=== PATIENT | male | born 1965 | race Two or more races ===

== ENCOUNTER 2018-06-19 23:48 | Emergency (ER) | payer OTHER ==
[~2018-06-19] VITALS: Ht 172.7 cm; Wt 90.7 kg
[~2018-06-19 23:48] MED LIST: CARB200T39 PO; LEVO25TA11 PO; RISP4TAB17 PO
[2018-06-19 23:53] VITALS: BP 141/93
== END 2018-06-20 00:41 | disposition home or self-care (01) ==
LOC: ER 23:52
DX: J40 Bronchitis, not specified as acute or chronic (principal); F25.9 Schizoaffective disorder, unspecified

== ENCOUNTER 2021-01-06 08:11 | Emergency (ER) | payer OTHER ==
[~2021-01-06] VITALS: Ht 172.7 cm; Wt 99.8 kg
[~2021-01-06 08:11] MED LIST changes: -CARB200T39 PO; +CARB200T9 PO; -RISP4TAB17 PO; +RISP4TAB70 PO
--- NOTE | 2021-01-06 08:25 | NUR ---
DR CARLOS AT BEDSIDE FOR EVAL
[2021-01-06] MEDS ORDERED: IV NS 0.9% 1,000 ML BAG IV ONE (08:30)
--- NOTE | 2021-01-06 08:30 | NUR ---
MINDI GOMES AT BEDSIDE FOR EKG
[2021-01-06 08:43] LABS: BASOPHILS % (AUTO) 0.6 % (0.0-2.0); EOSINOPHILS % (AUTO) 0.8 % (0.0-6.0); HEMATOCRIT 38 % (39-51); HEMOGLOBIN 13.6 g/dL (13.5-17.5); LYMPHOCYTES # (AUTO) 1.6 K/uL (0.8-4.8); LYMPHOCYTES % (AUTO) 25.4 % (20.0-44.0); MEAN CORPUSCULAR HGB CONC 36 g/dl (31.0-36.0); MEAN CORPUSCULAR VOLUME 88 fL (80-96); MONOCYTES # (AUTO) 0.5 K/uL (0.1-1.30); MONOCYTES % (AUTO) 8.1 % (2.0-12.0); NEUTROPHILS # (AUTO) 4.2 K/uL (1.8-8.9); NEUTROPHILS % (AUTO) 65.1 % (43.0-81.0); PLATELET COUNT (AUTO) 227 K/uL (150-450); RED BLOOD CELL COUNT(AUTO) 4.34 MIL/uL (4.5-6.0); WHITE BLOOD COUNT (AUTO) 6.5 K/uL (4.3-11.0)
--- NOTE | 2021-01-06 08:44 | NUR ---
PICKED UP BY JESSIKA GOMES VIA [facility] FOR CT SCAN
--- NOTE | 2021-01-06 08:56 | NUR ---
PATIENT BACK FRIM CT SCAN
[2021-01-06 09:23] LABS: CALCIUM, SERUM 7.9 mg/dL (8.5-10.1); CARBON DIOXIDE 23 mmol/L (21-32); CHLORIDE 91 mmol/L (98-107); CREATININE 0.8 mg/dL (0.6-1.3); GLUCOSE 136 mg/dL (74-106); SODIUM SERUM 124 mmol/L (136-145); UREA NITROGEN, BLOOD 9 mg/dL (7-18)
[2021-01-06 09:29] LABS: ALANINE AMINOTRANSFERASE 38 U/L (12-78); ALBUMIN 3.7 g/dL (3.4-5.0); ALKALINE PHOSPHATASE 70 U/L (46-116); ASPARTATE AMINOTRANSFERASE 28 U/L (15-37); BILIRUBIN,DIRECT 0.1 mg/dL (0.0-0.2); BILIRUBIN,TOTAL 0.3 mg/dL (0.2-1.0); TOTAL PROTEIN, SERUM 6.5 g/dL (6.4-8.2)
--- NOTE | 2021-01-06 09:38 | NUR ---
CALLED [facility] AND OPENED A CASE FOR PT. ALSO, ORDERED A SNAP SHOT.
--- NOTE | 2021-01-06 09:41 | NUR ---
PAGED [facility].
--- NOTE | 2021-01-06 10:17 | NUR ---
COVID 19 ANTIGEN SWAB DONE AND SENT TO LAB
--- NOTE | 2021-01-06 13:06 | NUR ---
[facility] CALLED AND WAS NOTIFIED THAT THE PT WAS ACCEPTED ROOM 5110A NUMBER FOR REPORT- [phone] DR[address] [facility] ETA FOR TRANSPORT [id number] PRN.
--- NOTE | 2021-01-06 13:41 | NUR ---
REPORT GIVEN TO TERI GUERRA OF [facility].
--- NOTE | 2021-01-06 14:04 | NUR ---
PICKED UP BY [id number] IN STABLE CONDITION. PATIENT WILL BE TRANSFERRED TO [facility]. VITALS TAKEN AND RECORDED.
[2021-01-06 14:05] VITALS: BP 154/111
== END 2021-01-06 14:17 | disposition short-term general hospital (02) ==
LOC: ER 08:13
DX: T42.1X1A Poisoning by iminostilbenes, accidental (unintentional), initial encounter (principal); R27.0 Ataxia, unspecified; Y92.038 Other place in apartment as the place of occurrence of the external cause; H55.00 Unspecified nystagmus; E87.1 Hypo-osmolality and hyponatremia; F25.9 Schizoaffective disorder, unspecified; R42 Dizziness and giddiness; R03.0 Elevated blood-pressure reading, without diagnosis of hypertension; F32.A Depression, unspecified; Z79.899 Other long term (current) drug therapy
CPT/HCPCS: 36415; 70450; 80048; 80076; 80156; 84484; 85025; 87426; 93005; 96360; 99285; C9803; J7030

== ENCOUNTER 2022-11-09 10:45 | Emergency (ER) | payer OTHER ==
[~2022-11-09] VITALS: Ht 175.3 cm; Wt 93.0 kg
[2022-11-09 12:05] LABS: CALCIUM, SERUM 8.7 mg/dL (8.5-10.1); CREATININE 0.7 mg/dL (0.6-1.3); POTASSIUM 3.7 mmol/L (3.5-5.1)
[2022-11-09 12:11] LABS: ALBUMIN 3.8 g/dL (3.4-5.0); BILIRUBIN,DIRECT 0.1 mg/dL (0.0-0.2); BILIRUBIN,TOTAL 0.2 mg/dL (0.2-1.0); TOTAL PROTEIN, SERUM 6.5 g/dL (6.4-8.2)
[2022-11-09 12:12] LABS: BASOPHILS % (AUTO) 0.5 % (0.0-2.0); EOSINOPHILS % (AUTO) 0.9 % (0.0-6.0); HEMATOCRIT 39 % (39-51); HEMOGLOBIN 13.6 g/dL (13.5-17.5); LYMPHOCYTES # (AUTO) 1.2 K/uL (0.8-4.8); LYMPHOCYTES % (AUTO) 22.1 % (20.0-44.0); MEAN CORPUSCULAR HEMOGLOBIN 31 PG (26.0-33.0); MEAN CORPUSCULAR HGB CONC 35 g/dl (31.0-36.0); MEAN CORPUSCULAR VOLUME 88 fL (80-96); MONOCYTES # (AUTO) 0.6 K/uL (0.1-1.30); MONOCYTES % (AUTO) 11.1 % (2.0-12.0); NEUTROPHILS # (AUTO) 3.7 K/uL (1.8-8.9); NEUTROPHILS % (AUTO) 65.4 % (43.0-81.0); PLATELET COUNT (AUTO) 221 K/uL (150-450); RED BLOOD CELL COUNT(AUTO) 4.41 MIL/uL (4.5-6.0); RED CELL DISTRIBUTION WIDTH 12.3 % (11.5-15.0); WHITE BLOOD COUNT (AUTO) 5.6 K/uL (4.3-11.0)
[2022-11-09 12:36] VITALS: BP 136/78; TEMP 98.4; O2SAT 100
== END 2022-11-09 12:36 | disposition home or self-care (01) ==
LOC: ER 10:51
DX: R10.9 Unspecified abdominal pain (principal); K21.9 Gastro-esophageal reflux disease without esophagitis; F20.9 Schizophrenia, unspecified; F32.A Depression, unspecified; Z60.2 Problems related to living alone
CPT/HCPCS: 36415; 80048-TC; 80076-TC; 80156-TC; 85025-TC

== ENCOUNTER 2023-12-26 03:20 | Emergency (ER) | payer OTHER ==
[~2023-12-26] VITALS: Ht 172.7 cm; Wt 95.3 kg
[2023-12-26 03:48] VITALS: BP 138/75; TEMP 101
[2023-12-26 04:24] LABS: BASOPHILS % (AUTO) 0.3 % (0.0-2.0); EOSINOPHILS % (AUTO) 0.4 % (0.0-6.0); HEMATOCRIT 41 % (39-51); HEMOGLOBIN 14.5 g/dL (13.5-17.5); LYMPHOCYTES # (AUTO) 0.9 K/uL (0.8-4.8); LYMPHOCYTES % (AUTO) 10.1 % (20.0-44.0); MEAN CORPUSCULAR HEMOGLOBIN 31 PG (26.0-33.0); MEAN CORPUSCULAR HGB CONC 35 g/dl (31.0-36.0); MEAN CORPUSCULAR VOLUME 88 fL (80-96); MONOCYTES % (AUTO) 12.1 % (2.0-12.0); NEUTROPHILS # (AUTO) 6.6 K/uL (1.8-8.9); NEUTROPHILS % (AUTO) 77.1 % (43.0-81.0); PLATELET COUNT (AUTO) 226 K/uL (150-450); RED BLOOD CELL COUNT(AUTO) 4.63 MIL/uL (4.5-6.0); RED CELL DISTRIBUTION WIDTH 12.4 % (11.5-15.0); WHITE BLOOD COUNT (AUTO) 8.6 K/uL (4.3-11.0)
[2023-12-26 05:07] LABS: APPEARANCE,URINE CLEAR (CLEAR); BILIRUBIN,URINE NEGATIVE (NEGATIVE); BLOOD, URINE NEGATIVE Ery/uL (NEGATIVE); COLOR,URINE YELLOW (YELLOW); KETONES,URINE NEGATIVE (NEGATIVE); LEUKOCYTE ESTERASE ,URINE NEGATIVE (NEGATIVE); NITRITE, URINE NEGATIVE (NEGATIVE); PH,URINE 7.5 (5.0-8.0); PROTEIN,URINE NEGATIVE (NEGATIVE); UGLUCOSE NEGATIVE (NEGATIVE); UROBILINOGEN,URINE 0.2 EU/dL (0.2)
[2023-12-26 05:17] LABS: AMPHETAMINE, URINE NEGATIVE (NEGATIVE); BARBITURATE, URINE NEGATIVE (NEGATIVE); BENZODIAZEPINE, URINE NEGATIVE (NEGATIVE); CANNABINOID, URINE NEGATIVE (NEGATIVE); COCCAINE, URINE NEGATIVE (NEGATIVE); OPIATE, URINE NEGATIVE (NEGATIVE); PHENCYCLIDINE SCREEN,URINE NEGATIVE (NEGATIVE)
[2023-12-26 05:57] LABS: ALANINE AMINOTRANSFERASE 36 U/L (12-78); ALBUMIN 3.7 g/dL (3.4-5.0); ALCOHOL, BLOOD < 3 mg/dL (0-10); ALKALINE PHOSPHATASE 75 U/L (46-116); ASPARTATE AMINOTRANSFERASE 16 U/L (15-37); BILIRUBIN,TOTAL 0.3 mg/dL (0.2-1.0); CALCIUM, SERUM 8.5 mg/dL (8.5-10.1); CARBON DIOXIDE 24 mmol/L (21-32); CHLORIDE 98 mmol/L (98-107); CREATININE 0.9 mg/dL (0.6-1.3); GLUCOSE 173 mg/dL (74-106); NT-PRO BNP 41 pg/mL (0-125); SODIUM SERUM 134 mmol/L (136-145); UREA NITROGEN, BLOOD 10 mg/dL (7-18)
[2023-12-26 06:02] LABS: CARBAMAZEPINE (TEGRETOL) 9.4 ug/ml (4-11.9)
[2023-12-26 06:04] VITALS: O2SAT 99
[2023-12-26 06:21] LABS: THYROID STIMULATING HORMONE 0.76 uIU/mL (0.358-3.74)
== END 2023-12-26 06:04 | disposition home or self-care (01) ==
LOC: ER 03:24
DX: R55 Syncope and collapse (principal); R42 Dizziness and giddiness; F25.9 Schizoaffective disorder, unspecified; K21.9 Gastro-esophageal reflux disease without esophagitis; F32.A Depression, unspecified; Z60.2 Problems related to living alone
CPT/HCPCS: 36415; 70450-TC; 80053-TC; 80156-TC; 83880; 84443-TC; 84484-TC; 85025-TC; G0480